=== PATIENT | male | born 2000 | race Caucasian/White ===

== ENCOUNTER 2023-03-29 20:34 | Emergency (ER) | payer MEDICAID ==
[~2023-03-29] VITALS: Ht 167.6 cm; Wt 49.4 kg
[~2023-03-29 20:34] MED LIST: HYDR25SU32 RC
[2023-03-29 20:39] VITALS: BP 127/91; PULSE 91; RESP 17; TEMP 99.2; O2SAT 97
--- NOTE | 2023-03-29 21:11 | NUR ---
ABILIO Boone placed 3 dontrell to posterior head. Pt tolerated well with no complications.
[2023-03-29] MEDS ORDERED: TETanus/Pertussis (Acell)/Diphther VAC/PF (Tdap-Adult) 0.5ml syringe IMVAC ONE (21:20)
--- NOTE | 2023-03-29 21:35 | NUR ---
I have reviewed and agree with all interventions, assessments performed and documented by alan lopez
== END 2023-03-29 21:34 | disposition home or self-care (01) ==
LOC: ER 20:35
DX: S01.01XA Laceration without foreign body of scalp, initial encounter (principal); Z79.899 Other long term (current) drug therapy; W25.XXXA Contact with sharp glass, initial encounter; Y93.89 Activity, other specified; Y92.89 Other specified places as the place of occurrence of the external cause; Y99.8 Other external cause status
CPT/HCPCS: 12001; 90471; 90715; 99283; A6449